=== PATIENT | female | born 1945 | race Caucasian/White ===

== ENCOUNTER 2018-04-15 09:35 | Outpatient (CLI) | payer MEDICARE, OTHER ==
[2018-04-15] MEDS ORDERED: Iopamidol 370 76% 100 ML VIAL ONE (11:41)
--- NOTE | 2018-04-15 12:30 | CT ---
CT ABDOMEN AND PELVIS WITH IV CONTRAST: TECHNIQUE: Multiple axial tomograms are obtained through the abdomen and pelvis with iv enhancement. Oral contr ast was administered. INDICATION: Abdominal pain with nausea, vomiting, and diarrhea. No comparison. FINDINGS: Lung bases clear. Liver and spleen unremarkable. Pancreas unremarkable. Stomach and duodenum unremarkable. Adrenal glands and kidneys unremarkable. There is a 2.2 cm cystic lesion inferior pole of the right kidney. Urinary bladder is mildly distended and appears unremarkable. Small bowel loops are normal caliber. Terminal ileum appears unremarkable. There is stool throughou t the colon and colonic mucosal lesions are not excluded. No evidence of mural thickening or colitis identified. There is luminal narrowing in the mid right colon which may be due to nondistention/con traction. Consider colonoscopy to further evaluate the colon. Aorta is normal caliber. The common bile duct is mildly prominent, but the patient appears to be post cholecystectomy. No gloria dence of intrahepatic ductal dilatation. No adenopathy identified. Images through the pelvis show unremarkable uterus and adnexa. IMPRESSION: 1. Question luminal narrowing in the right colon, probably related to nondistention. Consider colon oscopy to further evaluate. 2. Small right renal cyst. 3. No acute process identified. POS: [facility]
== END 2018-04-15 09:36 | disposition home or self-care (01) ==
LOC: CT 09:35
PROVIDERS: ATTEND Internal Medicine Gastroenterology
DX: N28.1 Cyst of kidney, acquired (principal); R19.7 Diarrhea, unspecified; R11.0 Nausea
CPT/HCPCS: 74177; 82565

== ENCOUNTER 2018-05-06 11:59 | Observation (INO) | payer MEDICARE, OTHER ==
--- NOTE | 2018-05-06 13:25 | RAD ---
PORTABLE AP CHEST RADIOGRAPH: Date: 05-06-18 History: Fever, altered mental status. Comparison: 03-04-18 FINDINGS: The cardiac silhouette and pulmonary vasculature are within normal limits. Lungs are clear. There has been no interval change from prior study. There is mild osteopenia. IMPRESSION: 1. No acute cardiopulmonary process. 2. Mild osteopenia. 3. Vascular calcifications in the thoracic aorta. POS: [facility]
[2018-05-06] MEDS ORDERED: Acetaminophen 325 MG TAB ONE (14:18)
[2018-05-06 14:32] LABS: Bilirubin Negative (Negative); Blood, Urine Trace (Negative); Glucose, Urine (Dipstick) Negative (Negative); Leukocyte Moderate (Negative); Nitrite Positive (Negative); Protein, Urine (Dipstick) Negative (Neg-Trace); Urobilinogen 0.2 mg/dL (0.2-1.0)
[2018-05-06 14:37] LABS: Clarity HAZY (Clear)
[2018-05-06 14:40] LABS: Bacteria/HPF 2+ HPF (None Seen); Hyaline Casts/LPF NONE SEEN LPF (0-3 Hyaline); RBC/HPF 0-3 HPF (0-3); Squamous Epithelial 0-3 HPF (0-3)
[2018-05-06] MEDS ORDERED: Acetaminophen 325 MG TAB PO PRN (15:01)
[2018-05-06] MEDS ORDERED: Ondansetron HCl/PF 4 MG/2 ML Vial IVP PRN (15:01)
[2018-05-06] MEDS ORDERED: Guaifenesin DM 100-10/5 ML UDCUP PO PRN (15:01)
[2018-05-06] MEDS ORDERED: Loperamide HCl 2 MG CAP PO PRN (15:01)
--- NOTE | 2018-05-06 16:06 | HP ---
REASON FOR ADMISSION: TIA, moderate to severe dehydration with confusion. 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 She also got confused this morning. She did not know where she was, although she was on her bed. Her workplace called her asking why she is not at work today. She did not know what day it was. She says "I was really messed up this morning I think I was dehydrated." The patient has history of diarrhea, which is watery and mucoid from 2017. She has seen Dr. Chua for the same and has had some stool studies. On , the patient had a CT abdomen with contrast done which apparently was negative. She had upper endoscopy done which was normal as far she knows. The patient had a colonoscopy done 4 years back which was normal as far she knows. The patient has nearly 30 pounds of weight loss in the last one month or so now. Has no complaint of any weakness in any of the extremities. No dizziness , visual symptoms, chest pain, palpitation, urinary frequency or urgency. Has dry cough due to a prior smoking habit. PAST MEDICAL AND SURGICAL HISTORY: History of hypertension, dyslipidemia, stress test done 8 years back was within normal limits as far she knows this was done at [facility], appendectomy, cholecystectomy, diarrhea from 2017, left ankle surgery. CURRENT MEDICATIONS: Budesonide inhaler q.6 hourly p.r.n., dicyclomine 20 mg p.r.n., hyoscyamine for diarrhea, Cozaar 50 mg daily, Paxil 20 mg daily, Crestor 5 mg daily, timolol eyedrops. ALLERGIES: AUGMENTIN, CODEINE, KEFLEX, and NIACIN. PERSONAL HISTORY: Quit smoking in 1998. Smoked one pack a day for nearly 40 years or so. Does not abuse alcohol or drugs. 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 She works 3-1/2 days a week. FAMILY HISTORY: The patient is adopted. She had 2 sons. Elder son in a motor vehicle accident. Code status is FULL. REVIEW OF SYSTEMS: The following complete review of systems was negative, unless otherwise mentioned in the HPI or below: Constitutional: Weight loss or gain, ability to conduct usual activities. Skin: Rash, itching. Eyes: Double vision, pain. ENT/Mouth: Nose bleeding, neck stiffness, pain, tenderness. Cardiovascular: Palpitations, dyspnea on exertion, orthopnea. Respiratory: Shortness of breath, wheezing, cough, hemoptysis, fever or night sweats. Gastrointestinal: Poor appetite, abdominal pain, heartburn, nausea, vomiting, constipation, or diarrhea. Genitourinary: Urgency, frequency, dysuria, nocturia. Musculoskeletal: Pain, swelling. Neurologic/Psychiatric: Anxiety, depression. Allergy/Immunologic: Skin rash, bleeding tendency. PHYSICAL EXAMINATION: GENERAL: Patient is a 73-year-old female who is currently not in any acute distress. VITAL SIGNS: Blood pressure 104/66, pulse 90 per minute, respiratory rate 20 per minute, temperature 98.1 degrees Fahrenheit, saturating 93% on room air. NECK: Supple, no elevated JVD. HEENT: Extraocular muscles intact. Pupils reacting to light. Oral cavity mucous membranes are dry. No exudates or congestion. CARDIOVASCULAR: S1, S2 heard. Regular rhythm. RESPIRATORY: Air entry 1+ bilateral. Scattered rhonchi plus. ABDOMEN: Soft, bowel sounds heard. No tenderness, rigidity or guarding. EXTREMITIES: No peripheral edema or calf tenderness. VASCULAR SYSTEM: Peripheral pulses 1+ bilateral, no ischemic ulcerations or gangrene. CENTRAL NERVOUS SYSTEM: No gross focal deficits noted. Patient is alert, awake , oriented well. PSYCHIATRIC: The patient's mood is euthymic. No hallucinations or delusions. LABORATORY AND X-RAY FINDINGS: EKG done shows normal sinus rhythm at 100 beats per minute. There are nonspecific ST-T wave changes. White count of 8.4, H and H 12 and 37, platelet count 251, MCV of 86. Serum glucose 130, BUN 6, creatinine 0.7, sodium 132, potassium 3.0, chloride 102, serum bicarbonate 22. Troponin I within normal limits. CT brain done at [facility] shows stable mild atrophy with probable chronic small vessel ischemic changes, otherwise no acute intracranial abnormality was seen. CLINICAL IMPRESSION AND PLAN: The patient will be under observation on telemetry for an episode of confusion early this morning with no gross motor deficits as such. Patient has diarrhea which has been worsening from last 6 weeks or so. She will be on the stroke unit for possible TIA and most likely it is moderate to severe dehydration which led to her current confusion with headache and weakness. She will be aggressively hydrated. Echo with 2D Doppler for LV function will be obtained. Her UA is positive for UTI and she will be placed on ciprofloxacin. We will also empirically place her on Flagyl due to incessant diarrhea from last 6 weeks. We will obtain stool studies x2 and Clostridium difficile as well. We will continue her Paxil, Crestor at the higher dose and a small dose of aspirin for now. We will continue to closely monitor her on the stroke unit. If patient were to feel better by morning, she will be discharged home. Please note patient has nearly 30 pound weight loss from the last 4 weeks due to her diarrhea. I have advised her to try lactose free diet and see if this will help. She in fact has had multiple workups done in Dr. Chua's office and I do not have access for the same at present. TRE
[2018-05-06] MEDS: Sodium Chloride 0.9% 1,000 ML IV SCH (17:12)
[2018-05-06] MEDS: metroNIDAZOLE 500 MG TAB PO SCH ×2 (17:12→19:48)
[2018-05-06] MEDS: Ciprofloxacin 500 MG TAB PO SCH (19:47)
[2018-05-06] MEDS: Famotidine 20 MG TAB PO SCH (19:48)
[2018-05-06] MEDS ORDERED: Rosuvastatin 10 MG TAB PO SCH (21:00)
[2018-05-06] MEDS ORDERED: PARoxetine 20 MG TAB PO SCH (21:00)
--- NOTE | 2018-05-07 00:16 | CON ---
DATE OF CONSULTATION: 05/06/2018 REASON FOR CONSULTATION: Diarrhea. HISTORY: Mrs. Osorio is a 73-year-old female from [place], who woke up this morning with a heada frederic and became disoriented and confused. She was also dehydrated, having severe diarrhea for the las t 2 months. Currently, she feels fine after given IV hydration. She was currently being evaluated f or any CVA event. However, she is back to her normal baseline. She has had chronic diarrhea for man y years; however, since February of this year, her diarrhea has been more persistent and more severe. S he relates having up to 10 episodes of frequent watery loose bowel daily without any visible blood or mucus. There is some vague upper abdominal pain, but without any cramps. She does not have any sara sea or vomiting. She reports having lost close to 30 pounds over the last 2 months. She denies havi ng any blood or mucus in her stool. Reportedly, she had a negative colonoscopy in [place] 4 years ago by a local surgeon. She saw Dr. Chua for the first time a month ago. At that time, EGD was perf ormed with biopsy of the small bowel came back negative. Abdominopelvic CT performed did not show an y remarkable findings. She did have an outpatient extensive stool evaluation by PCR at [facility] in February of this year that came back negative for any infectious pathogen. Currently, she is eati ng her meals without any nausea, vomiting, or abdominal pain. PAST MEDICAL HISTORY: 1. Hyperlipidemia. 2. Hypertension. 3. GE reflux disease. 4. Status post appendectomy. 5. Status post cholecystectomy. 6. Ankle surgery. MEDICATIONS: At home include hyoscyamine, Cozaar, Paxil, Crestor, eyedrop, timolol, and budesonide i nhaler. ALLERGIES: Include KEFLEX, NIACIN, AUGMENTIN, CODEINE. SOCIAL HISTORY: Patient lives alone. She is a former smoker. Denies any alcohol usage. FAMILY HISTORY: Adopted REVIEW OF SYSTEMS: A 30-pound weight loss in 2 months as above with diarrhea. Otherwise, 10-point r eview of systems did not show any other pertinent positive or negative. PHYSICAL EXAMINATION: VITAL SIGNS: Temperature is 98.7, blood pressure 108/68, pulse of 79. GENERAL: She is alert, conversant, in no distress. HEENT EXAM: Shows anicteric sclerae. Oropharynx clear. CARDIOVASCULAR EXAM: Shows normal S1 and S2 regular rate and rhythm. CHEST EXAN: Shows breath sound. ABDOMEN: Soft, protuberant, nontender, no palpable mass or organomegaly. Good bowel sounds. No bru it. EXTREMITY EXAM: Shows no edema. LABORATORY DATA: WBC is 8.4, hemoglobin 12, platelet count 251, creatinine 0.7, sodium 132, potassiu m 3.0, chloride 102, CO2 of 22. ASSESSMENT: 1. Acute on chronic diarrhea, more persistent and severe over the last 2 months. Stool by PCR in Ap ril of this year at [facility] was negative for any infectious pathogen. She did have a reporte dly negative colonoscopy 4 years ago in [place]. Differential diagnosis includes malabsorptive faith rrhea. Given concurrent weight loss, infectious etiology is still a possibility, despite a recent ne gative stool analysis by PCR, and also inflammatory colitis including microscopic colitis. 2. Recent negative EGD with small bowel biopsy and abdominopelvic CT. 3. Status post recent altered mentation and confusion this morning. Likely transient ischemic attac ks, as she currently has no motor or neurological deficit. 4. Urinary tract infections. RECOMMENDATIONS: 1. We will follow up with current stool studies. 2. Continue with rehydration. 3. Patient would need to have a repeat colonoscopy to evaluate for any inflammatory colitis or micro scopic colitis. This can be done as outpatient. Can use Lomotil to control diarrhea in the meantime .
[2018-05-07] MEDS: Sodium Chloride 0.9% 1,000 ML IV SCH (05:02)
[2018-05-07] MEDS: Ciprofloxacin 500 MG TAB PO SCH (05:02)
[2018-05-07 05:26] LABS: #Eosinphils 0.2 thou/uL (0.0-0.7); #Lymphocytes 0.7 thou/uL (1.20-3.40); #Monocytes 0.5 thou/uL (0.11-0.59); #Neutrophils 2.6 thou/uL (1.40-6.50); %Basophils 1.1 % (0.0-1.0); %Eosinophils 4.6 % (0.0-10.0); %Lymphocytes 18.1 % (21.0-51.0); %Monocytes 12.3 % (0.0-10.0); Hemoglobin 11.4 g/dL (12.0-16.0); Mean Corpuscular Hemoglobin 29.3 pg (27.0-31.0); Mean Corpuscular Volume 91.5 fL (78.0-98.0); Mean Platelet Volume 7.2 fL (7.4-10.4); Platelet Count 210 thou/uL (130-400); RBC Distribution Width 12.3 % (11.5-14.5)
[2018-05-07 05:45] LABS: Anion Gap 11 mmol/L (10-20); BUN (Urea Nitrogen) 7 mg/dL (9.8-20.1); Calc. Creatinine Clearance 74 mL/min (70-130); Calcium 8.4 mg/dL (7.8-10.44); Carbon Dioxide 25 mmol/L (23-31); Cardiac Risk 3.8 (Less than 4.5); Chloride 109 mmol/L (98-107); Cholesterol 158 mg/dl (< 200 Desired); Estimated GFR-MDRD 81; Glucose 96 mg/dL (83-110); HDL Cholesterol 42 mg/dL (>60 Neg Risk); LDL Cholesterol, Calculated 106 mg/dL; Potassium 3.1 mmol/L (3.5-5.1); Sodium 142 mmol/L (136-145); Triglycerides 52 mg/dL (Less than 150)
[2018-05-07] MEDS ORDERED: PARoxetine 20 MG TAB PO SCH (09:00)
[2018-05-07] MEDS ORDERED: Losartan 25 MG TAB PO SCH (09:00)
[2018-05-07] MEDS ORDERED: Aspirin 81 mg Enteric Coated Tablet PO SCH (09:00)
[2018-05-07] MEDS ORDERED: Enoxaparin Sodium 40 MG/0.4 ML SYRINGE SC SCH (09:00)
[2018-05-07] MEDS: Famotidine 20 MG TAB PO SCH (10:37)
[2018-05-07] MEDS: metroNIDAZOLE 500 MG TAB PO SCH (10:37)
--- NOTE | 2018-05-07 10:49 | PDOC.PN ---
- Subjective Encounter Start Date: 05/07/18 Encounter Start Time: 08:00 Subjective: feels better, diarrhea 2 episodes overnight, no nausea -: is eating better -: no weakness anywhere, is amb in room - Objective Resuscitation Status: Resuscitation Status FULL:Full Resuscitation MAR Reviewed: Yes Vital Signs & Weight: Vital Signs (12 hours) Temp Pulse Resp BP Pulse Ox 05/07/18 07:36 97.5 F L 64 18 122/73 92 L 05/07/18 03:13 98.4 F 62 16 109/73 95 05/06/18 23:18 97.9 F 66 16 119/67 96 Weight Weight 143 lb 11.2 oz I&O: 05/06/18 05/07/18 05/08/18 06:59 06:59 06:59 Intake Total 4032 Balance 4032 Result Diagrams: 05/07/18 05:09 05/07/18 05:09 Phys Exam - Physical Examination HEENT: PERRLA, moist MMs Neck: no JVD, supple Respiratory: no wheezing, no rales Cardiovascular: RRR, no significant murmur Gastrointestinal: soft, non-tender, positive bowel sounds Musculoskeletal: no edema, pulses present Neurological: non-focal, moves all 4 limbs Psychiatric: normal affect, A&O x 3 Dx/Plan (1) Chronic diarrhea Code(s): K52.9 - NONINFECTIVE GASTROENTERITIS AND COLITIS, UNSPECIFIED Status : Acute (2) TIA (transient ischemic attack) Status: Acute Qualifiers: Transient cerebral ischemia type: unspecified Qualified Code(s): G45.9 - Transient cerebral ischemic attack, unspecified (3) Moderate dehydration Code(s): E86.0 - DEHYDRATION Status: Acute (4) HTN (hypertension) Code(s): I10 - ESSENTIAL (PRIMARY) HYPERTENSION Status: Chronic Qualifiers: Hypertension type: essential hypertension Qualified Code(s): I10 - Essential (primary) hypertension (5) Dyslipidemia Code(s): E78.5 - HYPERLIPIDEMIA, UNSPECIFIED Status: Chronic - Plan to continue cipro x 7 days -: to f/u with in 2 weeks. -: continue asp, crestor, paxil -: may dc home this afternoon * . Review of Systems - Medications/Allergies Allergies/Adverse Reactions: Allergies Allergy/AdvReac Type Severity Reaction Status Date / Time codeine Allergy Unknown Verified 05/06/18 16:51 amoxicillin [From Augmentin] Allergy Verified 05/06/18 16:51 cephalexin [From Keflex] Allergy Verified 05/06/18 16:52 niacin Allergy Verified 05/06/18 16:52 Medications: Current Medications Acetaminophen (Tylenol) 650 mg PO Q4H PRN PRN Reason: Headache/Fever or Pain Last Admin: 05/06/18 19:48 Dose: 650 mg Albuterol/Ipratropium (Duoneb) 3 ml NEB [id number] PRN PRN Reason: SOB &/or Wheezing Aspirin (Ecotrin) 81 mg PO DAILY [facility] Last Admin: 05/07/18 10:36 Dose: Not Given Ciprofloxacin (Cipro) 500 mg PO 06,1999 [facility] Last Admin: 05/07/18 05:02 Dose: 500 mg Enoxaparin Sodium (Lovenox) 40 mg SC 0900 [facility] Last Admin: 05/07/18 10:36 Dose: Not Given Famotidine (Pepcid) 20 mg PO BID [facility] Last Admin: 05/07/18 10:37 Dose: 20 mg Guaifenesin/Dextromethorphan (Robitussin Dm) 15 ml PO Q4H PRN PRN Reason: Cough Sodium Chloride (Normal Saline 0.9%) 1,000 mls @ 80 mls/hr IV .[id number] [facility] Last Admin: 05/07/18 05:02 Dose: 1,000 mls Loperamide HCl (Imodium) 2 mg PO PRN PRN PRN Reason: Diarrhea/Loose Stools Last Admin: 05/07/18 05:05 Dose: 2 mg Losartan Potassium (Cozaar) 50 mg PO DAILY [facility] Last Admin: 05/07/18 10:35 Dose: 50 mg Metronidazole (Flagyl) 500 mg PO TID [facility] Last Admin: 05/07/18 10:37 Dose: 500 mg Ondansetron HCl (Zofran) 4 mg IVP Q6H PRN PRN Reason: Nausea/Vomiting Paroxetine HCl (Paxil) 20 [address] [facility] Last Admin: 05/06/18 20:17 Dose: 20 mg Rosuvastatin Calcium (Crestor) 10 mg PO HS [facility] Last Admin: 05/06/18 19:48 Dose: 10 mg
[2018-05-07 11:39] VITALS: BMI 27.1
[2018-05-07 11:48] VITALS: BP 142/73; TEMP 97.7
--- NOTE | 2018-05-08 00:18 | DIS ---
DATE OF ADMISSION: 05/06/2018 DATE OF DISCHARGE: 05/07/2018 DISCHARGE DISPOSITION: To home. PRIMARY DISCHARGE DIAGNOSES: Chronic diarrhea with worsening episodes from last 3 days, moderate dehydration, transient ischemic attack, hypertension and dyslipidemia. PROCEDURES DONE DURING HOSPITALIZATION: The patient has had chest x-ray done, which showed no acute cardiopulmonary process. Stool studies were negative for C. diff, Campylobacter, Shiga toxin and E. coli. Urine culture grew E. coli 75- 100,000 colony forming units per mL. Susceptibilities are pending at the time of discharge. H and H 11 and 35, platelet count 210. Total cholesterol 158, LDL 106, HDL 42, triglycerides 52. DISCHARGE MEDICATIONS: Aspirin 81 mg p.o. daily, ciprofloxacin 500 mg p.o. twice daily for 7 days, losartan 50 mg p.o. daily, Paxil 20 mg p.o. at bedtime, Crestor 10 mg p.o. at bedtime, timolol eyedrops as before. INPATIENT CONSULTS: Dr. Mcmahon for Gastroenterology. DISCHARGE PLAN: Patient to follow up with Dr. Chua in 2-4 weeks. She also needs to follow up with her primary care physician in 1 week. BRIEF COURSE DURING HOSPITALIZATION: Patient initially was sent from [facility] after she was transferred for possible TIA. The patient gave history of having severe diarrhea, which had worsened from last 3 days. She had diarrhea from 02/18/2018 and had been seeing Dr. Chua for the same. She has had some workup done including CAT scans and stool studies, which have all been negative so far. She was confused and was dehydrated. She also had 30 -pound weight loss in the last month or so now. In view of this history, she was placed under observation on the stroke unit. The patient's NIH was zero on arrival here. She is fully alert, awake, and oriented. The patient was moving all 4 extremities and ambulating. In view of her severe diarrhea, patient has had consultation with Dr. Chua/Salome who was covering for Dr. Chua. She was gently hydrated for moderate to severe dehydration. Stool studies were done which have been negative for C. diff, Shigella, E. coli and Campylobacter. Her diarrhea frequency has come down now. She is wanting to go home. She has been advised to try lactose free diet for two weeks. The patient also needs to follow up with Dr. Chua and will likely require outpatient colonoscopy. Her urinalysis was positive for UTI and has been prescribed ciprofloxacin, which might work for her gastrointestinal tract as well. Prior to discharge, she is ambulating and eating well. Please see a [id number]-foit documentation on [facility] for the day of discharge. Please note no further stroke workup was done as patient was ambulating with no focal deficits. TRE
[2018-05-10 17:11] LABS: Neutral Fats And/Or Soaps Normal (.)
== END 2018-05-07 12:27 | disposition home or self-care (01) ==
LOC: ERS 11:59 → 2SE 13:10
PROVIDERS: ADMIT Internal Medicine; ATTEND Internal Medicine
DX: K52.9 Noninfective gastroenteritis and colitis, unspecified (principal); G45.9 Transient cerebral ischemic attack, unspecified; I10 Essential (primary) hypertension; E78.5 Hyperlipidemia, unspecified; E86.0 Dehydration; R41.0 Disorientation, unspecified; Z79.82 Long term (current) use of aspirin; Z79.899 Other long term (current) drug therapy; Z88.5 Allergy status to narcotic agent; Z88.8 Allergy status to other drugs, medicaments and biological substances; Z87.891 Personal history of nicotine dependence
CPT/HCPCS: 71045; 80048; 80061; 82705; 85025; 87045; 87046; 87077; 87086; 87186; 87324; 87449 ×2; 87899 ×2; 93306; 96360; 96361 ×2; 99285; G0378; 36415; 81003; 81015; 87081; J1650

== ENCOUNTER 2022-10-18 11:01 | Observation (INO) | payer MEDICARE ==
[2022-10-18 11:58] LABS: #Basophils 0.1 thou/uL (0.0-0.2); #Eosinphils 0.2 thou/uL (0.0-0.7); #Lymphocytes 1.6 thou/uL (1.20-3.40); #Monocytes 0.7 thou/uL (0.11-0.59); #Neutrophils 3.8 thou/uL (1.40-6.50); %Basophils 0.9 % (0.0-1.0); %Eosinophils 2.6 % (0.0-10.0); %Lymphocytes 25.3 % (21.0-51.0); %Monocytes 11.1 % (0.0-10.0); %Neutrophils 60.1 % (42.0-75.0); Hemoglobin 11.7 g/dL (12.0-16.0); Mean Corpuscular HGB CONC 33.6 g/dL (32.0-36.0); Mean Corpuscular Hemoglobin 31.3 pg (27.0-31.0); Mean Corpuscular Volume 93.2 fl (78.0-98.0); Mean Platelet Volume 7.5 fL (7.4-10.4); Platelet Count 304 10x3/uL (130-400); RBC Distribution Width 11.7 % (11.5-14.5); Red Blood Cell (RBC) Count 3.75 mill/uL (4.20-5.40); White Blood Cell (WBC) Count 6.3 10x3/uL (4.8-10.8)
[2022-10-18 12:11] LABS: Bacteria/HPF None Seen HPF (None Seen); Bilirubin Negative (Negative); Blood, Urine Negative (Negative); Clarity Clear (Clear); Glucose, Urine (Dipstick) Normal (Negative); Ketone, Urine Negative (Negative); Leukocyte 25 Leu/uL (Negative); Nitrite Negative (Negative); Protein, Urine (Dipstick) Negative (Neg-Trace); RBC/HPF 0-3 HPF (0-3); Specific Gravity, Urine 1.005 (1.002-1.036); Squamous Epithelial 0-3 HPF (0-3); Urobilinogen Normal mg/dL (Less than 2); WBC/HPF 0-3 HPF (0-3)
[2022-10-18 12:18] LABS: ALT (SGPT) 18 U/L (8-55); AST (SGOT) 19 U/L (5-34); Alkaline Phosphatase 113 U/L (40-110); Anion Gap 13 mmol/L (10-20); BUN (Urea Nitrogen) 17 mg/dL (9.8-20.1); Bilirubin, Total 0.4 mg/dL (0.2-1.2); Calc. Creatinine Clearance 0 mL/min (70-130); Calcium 9.5 mg/dL (7.8-10.44); Carbon Dioxide 26 mmol/L (23-31); Chloride 99 mmol/L (98-107); Estimated GFR 81; Globulin 3.2 g/dL (2.4-3.5); Glucose 92 mg/dL (83-110); Potassium 3.3 mmol/L (3.5-5.1); Protein, Total 7.2 g/dL (5.8-8.1); Sodium 135 mmol/L (136-145)
[2022-10-18] MEDS ORDERED: Aspirin Chewable 81 MG TAB ONE (13:48)
[2022-10-18] MEDS ORDERED: Ondansetron PF 4 MG/2 ML Vial IVP PRN (14:50)
[2022-10-18] MEDS ORDERED: Acetaminophen 325 MG TAB PO PRN (14:50)
[2022-10-18 20:10] VITALS: BMI 32.0
[2022-10-18] MEDS ORDERED: Loperamide HCl 2 MG CAP PO PRN (20:29)
[2022-10-18] MEDS ORDERED: traZODone HCl 50 MG TAB PO SCH (21:00)
[2022-10-18] MEDS ORDERED: Rosuvastatin 10 MG TAB PO SCH (21:00)
[2022-10-19 05:48] LABS: Hemoglobin A1c 5.4 % (4.0-6.0)
[2022-10-19 06:05] LABS: Cardiac Risk 5.1 (Less than 4.5)
[2022-10-19] MEDS ORDERED: Potassium Chloride 20 MEQ TAB PO SCH (07:49)
[2022-10-19] MEDS ORDERED: Losartan/Hydrochlorothiazide 100 mg/25 mg Tablet PO SCH (09:00)
[2022-10-19] MEDS ORDERED: Timolol 0.5% Ophth Soln 5 ml Bottle EA EYE SCH (09:00)
[2022-10-19] MEDS ORDERED: Losartan 25 MG TAB PO SCH (09:00)
[2022-10-19] MEDS ORDERED: Aspirin Chewable 81 MG TAB PO SCH (09:00)
[2022-10-19] MEDS ORDERED: Enoxaparin Sodium 40 MG/0.4 ML SYRINGE SC SCH (09:00)
[2022-10-19] MEDS ORDERED: DULoxetine 30 MG CAP PO SCH (09:00)
[2022-10-19 10:36] LABS: Magnesium 1.7 mg/dL (1.6-2.6)
[2022-10-19 16:02] VITALS: BP 137/73; TEMP 97.1
== END 2022-10-19 17:44 | disposition home or self-care (01) ==
LOC: ERS 11:01 → ERHOLD 12:52 → 2SW 18:21
PROVIDERS: ADMIT Family Medicine; ATTEND Nurse Practitioner Acute Care
DX: G45.9 Transient cerebral ischemic attack, unspecified (principal); R01.1 Cardiac murmur, unspecified; I11.9 Hypertensive heart disease without heart failure; E78.00 Pure hypercholesterolemia, unspecified; E87.6 Hypokalemia; M25.512 Pain in left shoulder; I08.3 Combined rheumatic disorders of mitral, aortic and tricuspid valves; Z66 Do not resuscitate; Z87.891 Personal history of nicotine dependence; Z79.82 Long term (current) use of aspirin; Z79.899 Other long term (current) drug therapy; Z88.1 Allergy status to other antibiotic agents; Z88.5 Allergy status to narcotic agent; Z88.8 Allergy status to other drugs, medicaments and biological substances; Z20.822 Contact with and (suspected) exposure to COVID-19
CPT/HCPCS: 70450; 70551; 71045; 72125; 80053; 80061; 83036; 83735; 84484; 85025; 93005; 93306; 93880; 99285; U0003; U0005; 36415; 81003; 81015; 96372; G0378; J1650